=== PATIENT | female | born 1970 | race Caucasian/White ===

== ENCOUNTER → 2019-04-26 | Day surgery (SDC) | payer BC ==
[~2019-04-26] MED LIST: Lidocaine 1% 20 ML MDV ONE
== END ==
LOC: CC.SDS 10:58
PROVIDERS: ATTEND Family Medicine
DX: I83.12 Varicose veins of left lower extremity with inflammation (principal)
CPT/HCPCS: A4216

== ENCOUNTER → 2019-05-04 | Day surgery (SDC) | payer BC ==
[2019-05-04 08:55] VITALS: BP 118/65; PULSE 78
== END ==
LOC: CC.SDS 06:28
PROVIDERS: ATTEND Family Medicine
DX: I83.11 Varicose veins of right lower extremity with inflammation (principal)
CPT/HCPCS: A4216

== ENCOUNTER → 2020-05-26 | Day surgery (SDC) | payer BC ==
[~2020-05-26] MED LIST changes: +Ketamine 200 MG/20 ML MDV ONE; +Lactated Ringers 1,000 ML IV SCH; -Lidocaine 1% 20 ML MDV ONE; +Ondansetron 4 MG/2 ML SDV ONE; +Propofol 200 MG/20 ML SDV ONE; +fentaNYL 100 MCG/2 ML SDV ONE
--- NOTE | 2020-05-26 12:44 | OR ---
DATE OF OPERATION: 05/26/2020 PREOPERATIVE DIAGNOSIS: SCREENING COLONOSCOPY. POSTOPERATIVE DIAGNOSIS: SCREENING COLONOSCOPY. SURGEON: Sean Morris MD PROCEDURE: FULL-LENGTH COLONOSCOPY WITH FORCEPS POLYP REMOVAL X1. ANESTHESIA: MAC. COMPLICATIONS: None. SPECIMEN: Villous polyp of proximal ascending colon, approximately 4 to 5 mm. FINDINGS: 1. Full-length colonoscopy. 2. Mild pandiverticulosis. 3. Small villous lesion approximately 4 mm of proximal ascending colon. RECOMMENDATIONS: Followup colonoscopy in 3 to 5 years pending path report. INDICATIONS: The patient was seen by Sofie Amaya for routine physical and was sent for a screening colonoscopy. DESCRIPTION OF PROCEDURE: The patient was prepped and draped, placed in the left lateral decubitus position. A lubricated Olympus colonoscope was inserted and easily advanced to the cecum. Direct visualization of the ileocecal valve and appendiceal orifice was accomplished. The bowel prep was excellent. Upon withdrawal of the scope, the cecal pouch appeared benign. In the proximal ascending colon, the patient had a small flat villous adenoma which was on the back-end of a haustral fold. We could not get a snare around it just because of the flatness of it. We ended up removing it I believe in its entirety with 4 separate forceps biopsies. The rest of the ascending and transverse colon were benign. The patient does have diverticular disease extending over into the right upper quadrant, mild in severity throughout the whole colon through the rest of the colon. The left side of the colon showed no signs of any other polyps, masses, ulceration, or bleeding sites. No vascular abnormalities or signs of colitis. The rectal vault was benign. Retroflexion of the scope in the rectum showed no perianal lesions. Air was suctioned and the scope removed without complication. JOAQUIN/MELISSA /[id number]
== END ==
LOC: CC.SDS 09:11
PROVIDERS: ATTEND Family Medicine
DX: Z12.11 Encounter for screening for malignant neoplasm of colon (principal); D12.2 Benign neoplasm of ascending colon; K57.30 Diverticulosis of large intestine without perforation or abscess without bleeding; E78.5 Hyperlipidemia, unspecified; E03.9 Hypothyroidism, unspecified; E66.9 Obesity, unspecified; E55.9 Vitamin D deficiency, unspecified; I87.2 Venous insufficiency (chronic) (peripheral); Z01.812 Encounter for preprocedural laboratory examination; Z20.822 Contact with and (suspected) exposure to COVID-19; Z79.899 Other long term (current) drug therapy; Z79.890 Hormone replacement therapy; Z98.890 Other specified postprocedural states; Z87.891 Personal history of nicotine dependence; Z68.34 Body mass index [BMI] 34.0-34.9, adult
CPT/HCPCS: 00812; 36415; 84703; J2405; J2704; J3010; J7120